=== PATIENT | male | born 2000 | race Caucasian/White ===

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

== ENCOUNTER 2022-07-04 10:50 | Emergency (ER) | payer OTHER ==
[2022-07-04 10:58] VITALS: BP 113/69; PULSE 61; RESP 18; TEMP 98.8; BMI 19.0
[2022-07-04] MEDS ORDERED: IBUPROFEN 600 MG TABLET (FP) PO ONE ×2 (11:37→11:39)
== END 2022-07-04 12:21 | disposition home or self-care (01) ==
LOC: JERFT 10:50
DX: M25.562 Pain in left knee (principal); X50.1XXA Overexertion from prolonged static or awkward postures, initial encounter; Y93.89 Activity, other specified
CPT/HCPCS: 73562-TC-LT-FY; 99283-25

== ENCOUNTER 2022-08-28 14:47 | Emergency (ER) | payer OTHER ==
[2022-08-28 14:51] VITALS: BP 109/70; PULSE 98; RESP 18; TEMP 98.2; BMI 19.0
== END 2022-08-28 16:19 | disposition home or self-care (01) ==
LOC: JERFT 14:47
DX: H53.8 Other visual disturbances (principal)
CPT/HCPCS: 76512; 99284-25

== ENCOUNTER 2024-11-23 10:59 | Emergency (ER) | payer OTHER ==
[2024-11-23 11:11] VITALS: RESP 18; TEMP 97.9; BMI 21.7
[2024-11-23 12:43] LABS: ABSOLUTE IMMATURE GRANULOCYTES 0.02 x10^3/uL (0.0-0.031); BASOPHILS # 0.04 x10^3/uL (0.01-0.08); EOSINOPHIL % 1.9 % (0.8-7.0); EOSINOPHILS # 0.12 x10^3/uL (0.04-0.54); MCHC 33.1 g/dl (32.3-36.5); MEAN CELL VOLUME 95.0 fl (79.0-92.2); MEAN PLT VOLUME 11.6 fl (9.4-12.4); MONOCYTE # 0.42 x10^3/uL (0.30-0.82); MONOCYTE % 6.5 % (5.3-12.2); RDW 12.1 % (11.9-15.3)
[2024-11-23 13:09] LABS: GLUCOSE,RANDOM 87.0 mg/dL (74-106); TOT PROT 6.8 g/dl (6.4-8.2)
[2024-11-23 13:10] LABS: CO2 27.0 mmol/L (21-32)
[2024-11-23 13:12] LABS: ALK PHOS 71.0 U/L (40-150)
[2024-11-23 13:14] LABS: SGPT/ALT 15.0 U/L (0-55)
[2024-11-23 13:15] LABS: CREATININE 0.91 mg/dL (0.55-1.3); SGOT/AST 18.0 U/L (5-34)
[2024-11-23 13:35] LABS: HCV DIAGNOSTIC IN-HOUSE W/RFLX NON-REACTIVE (NONREACTIVE); HIV INTERPRETATION NEGATIVE (NEGATIVE)
[2024-11-23 15:11] VITALS: BP 114/76; PULSE 65
== END 2024-11-23 15:22 | disposition home or self-care (01) ==
LOC: JERFT 10:59
DX: S49.92XA Unspecified injury of left shoulder and upper arm, initial encounter (principal); R20.0 Anesthesia of skin; R20.2 Paresthesia of skin; F10.90 Alcohol use, unspecified, uncomplicated; R55 Syncope and collapse; H55.00 Unspecified nystagmus; X58.XXXA Exposure to other specified factors, initial encounter
CPT/HCPCS: 36415; 70450-TC; 72125-TC; 80053; 83735; 85025; 86803; 87389; 99284-25